=== PATIENT | male | born 1955 | race Two or more races ===

== ENCOUNTER 2022-08-04 09:08 | Outpatient (CLI) | payer OTHER | END 2022-08-04 23:59 | disposition home or self-care (01) | LOC: LAB 09:08 | PROVIDERS: ATTEND Specialist | DX: Z01.812 Encounter for preprocedural laboratory examination (principal); Z20.822 Contact with and (suspected) exposure to COVID-19 | CPT/HCPCS: U0003; C9803 ==

== ENCOUNTER 2022-08-12 05:18 | Inpatient (IN) | payer OTHER ==
[2022-08-12] VITALS (7 sets, daily range): BP systolic 120–158; BP diastolic 62–82
[~2022-08-12] VITALS: Ht 160 cm; Wt 102.1 kg
--- NOTE | 2022-08-12 05:30 | NUR ---
DAY SURGERY RECEIVED PATIENT IN DAY SURGERY , AMBULATORY,A/OX4, RESPIRATION EVEN AND UNLABORED , ACCOMPANIED BY FAMILY MEMBER, RIGHT HAND IV SITE G 20 STARTED , PT NPO , CHECK LIST DONE , ALL THE CONSENTS DONE, AWAITING TO BE TRANSFERRED TO OR .
[2022-08-12] MEDS ORDERED: BUPIVACAINE 0.5 % PF 150 MG/30 ML VIAL ONE ×2 (06:14→06:56)
[2022-08-12] MEDS ORDERED: POLYMYXIN B SULFATE 500,000 UNITS ONE (06:15)
--- NOTE | 2022-08-12 06:15 | NUR ---
DAY SURGERY PATIENT TO SURGERY HOLDING AREA AT THIS TIME.
[2022-08-12] MEDS ORDERED: HYDROMORPHONE INJ 2 MG/ML DISP.SYRIN ONE (06:56)
[2022-08-12] MEDS ORDERED: oxyCODONE IR immediate release 5 MG PO PRN (07:00)
[2022-08-12] MEDS ORDERED: TRANEXAMIC ACID 3,000 MG in SODIUM CHLORIDE IRRIG SOLUTION 70 ML IR ONE (07:00)
[2022-08-12] MEDS ORDERED: CLONIDINE HCL 0.1 MG TABLET PO PRN (07:00)
[2022-08-12] MEDS ORDERED: diphenhydrAMINE HCL 25 MG CAPSULE PO PRN (07:00)
[2022-08-12] MEDS ORDERED: MAG HYDROX/AL HYDROX/SIMETH 30 ML UDC PO PRN (07:00)
[2022-08-12] MEDS ORDERED: ONDANSETRON HCL/PF 4 MG/2 ML VIAL IV PRN (07:00)
[2022-08-12] MEDS ORDERED: MENTHOL/CETYLPYRD (CEPACOL) 1 LOZ LOZENGE PO PRN (07:00)
[2022-08-12] MEDS ORDERED: HYDROMORPHONE 1 MG/1 ML DISP.SYRIN IM/IV/SC PRN (07:00)
[2022-08-12] MEDS: IV LR 1000 ML 1,000 ML IV PRN ×2 (10:27→22:24)
--- NOTE | 2022-08-12 10:30 | NUR ---
RN ADMITTING NOTES ADMITTED THIS 66 Y/O MALE PATIENT FROM PACU @0950 AM. TRANSPORTED VIA GURNEY, ACCOMPANIED BY RN LU CAMPBELL. ADMITTING DIAGNOSIS: S/P LEFT TOTAL KNEE ARTHROPLASTY BY DR. CARTER. PATIENT IS AWAKE, ALERT AND ORIENTED X4, VERBALLY RESPONSIVE, NOT IN ANY ACUTE DISTRESS. PATIENT DENIES ANY PAIN AT THIS TIME. CURRENTLY ON O2 INHALATION @2LPM VIA N/C, SATURATING @ 93%. NO SOB NOTED, BREATHING EVEN AND UNLABORED. NOTED WITH PERIPHERAL LINE ON RIGHT HAND #20G, INTACT AND PATENT, FLUSHES WELL. NOTED WITH LEFT LEG DRESSING, C/D/I. NOTED WITH PETECHIAE ON BOTH UPPER EXTREMITIES, DENIED ANY PAIN OR ITCHING. ORIENTED PATIENT TO ROOM AND STAFF. VITAL SIGNS TAKEN, STABLE. POST-OP ORDERS NOTED AND CARRIED OUT. IV FLUID OF LR @100ML/HR STARTED. SAFETY MEASURE IN PLACE. BED IN LOWEST AND LOCKED POSITION, SIDE RAILS UP X2, CALL LIGHT PLACED WITHIN EASY REACH. WILL CONTINUE TO MONITOR PATIENT.
[2022-08-12] MEDS ORDERED: ATOR40TA PO (10:38)
[2022-08-12] MEDS ORDERED: FINA5TAB11 PO (10:38)
[2022-08-12] MEDS ORDERED: TAMS-12 PO (10:38)
[2022-08-12] MEDS ORDERED: METF750T46 PO (10:38)
[2022-08-12] MEDS ORDERED: AMLO2.5T4 PO (10:38)
[2022-08-12] MEDS ORDERED: POTA-58 PO (10:38)
[2022-08-12] MEDS ORDERED: BENA40TA8 PO (10:38)
[2022-08-12] MEDS ORDERED: FURO-144 PO (10:38)
[2022-08-12] MEDS: FAMOTIDINE (20 MG) 20 MG TABLET PO SCH ×2 (11:28→21:22)
[2022-08-12] MEDS: ANCEF 1 GM/50 ML D5W IV SCH ×4 (14:21→22:24)
[2022-08-12] MEDS: DOCUSATE SODIUM 100 MG CAPSULE PO SCH (17:06)
[2022-08-12] MEDS: AMLODIPINE BESYLATE 5 MG TABLET PO SCH (17:07)
--- NOTE | 2022-08-12 18:40 | NUR ---
RN CLOSING NOTES PATIENT IN BED AWAKE, A/O X4, NO SIGNS OF ACUTE DISTRESS NOTED. ON O2 @ 2LPM VIA N/C SATURATING WELL, NO SOB NOTED, BREATHING EVEN AND UNLABORED. DENIES ANY PAIN AT THIS TIME. S/P LEFT KNEE ARTHROPLASTY WITH DRESSING C/D/I. IV ACCESS ON RIGHT HAND #20G, INTACT AND PATENT WITH LR @100ML/HR INFUSING WELL. SAFETY MEASURE IN PLACE. BED IN LOWEST AND LOCKED POSITION. SIDE RAILS UP X2, CALL LIGHT PLACED WITHIN EASY REACH. WILL CONTINUE TO MONITOR PATIENT.
--- NOTE | 2022-08-12 18:55 | NUR ---
RN NOTE OXY IR 5 MG 1 TAB GIVEN PER ORAL FOR C/O LEFT KNEE PAIN.
--- NOTE | 2022-08-12 19:30 | NUR ---
MS RN OPENING NOTES RECEIVED PATIENT LYING IN BED AWAKE. A/O X4. BREATHING EVEN AND NON-LABORED. ON O2 AT 2LPM VIA NASAL CANULA. NOT IN APPARENT DISTRESS. VERBALIZED LEFT KNEE PAIN 4-5, PRN OXY 5MG ADMINISTERED AT 1855. HAS RIGHT HAND IV ACCESS #20G WITH LR RUNNING AT 100 ML/HR. NO S/S OF INFILTRATION NOTED. LEFT KNEE SURGICAL DRESSING C/D/I. SAFETY MEASURES IN PLACE: BED LOCKED AND IN LOWEST POSITION, SIDE RAILS UP X2, CALL LIGHT WITHIN REACH. WILL CONTINUE POC.
[2022-08-12] MEDS ORDERED: TAMSULOSIN 0.4 MG CAP.SR.24H PO SCH (22:00)
--- NOTE | 2022-08-13 00:43 | NUR ---
RT NOTE Pt rec'd on Room air. Pt awake and alert. Pt placed on CPAP NOC per MD orders. Pt shows no signs of resp distress. pt is comfortable and tolerates CPAP well. RN aware. CPAP plugged into red outlet. Ambu bag at bedside. Alarms are set and audible. Will continue to monitor closely. Addendum: 08/13/22 at 0045 by SOPHIA NG RT Amended: Links added.
[2022-08-13] MEDS: oxyCODONE IR immediate release 5 MG PO PRN ×3 (05:42→16:01)
--- NOTE | 2022-08-13 07:00 | NUR ---
MS RN CLOSING NOTES PATIENT LYING IN BED AWAKE, ABLE TO VERBALIZE NEEDS. A/O X4. NO SOB OR NOTED, TOLERATING ROOM AIR WELL. DENIES PAIN AT THIS TIME. AFEBRILE. HAS RIGHT HAND IV ACCESS #20G WITH LR RUNNING AT 100 ML/HR. INTACT, PATENT AND FLUSHING. LEFT KNEE SURGICAL DRESSING C/D/I. ALL DUE MEDS GIVEN AND NEEDS ATTENDED. SAFETY MEASURES MAINTAINED: BED LOCKED AND IN LOWEST POSITION, SIDE RAILS UP X2, CALL LIGHT WITHIN REACH. WILL ENDORSE FOR PUMA.
--- NOTE | 2022-08-13 07:10 | NUR ---
MS RN OPENING NOTES: RECEIVED PT IN BED AWAKE, ALERT AND ORIENTED X 4 AND ABLE TO VERBALIZED NEEDS. NO SOB OR CARDIAC DISTRESS NOTED. DENIES PAIN AT THIS TIME. S/P LTKA 08/12. IV ACCESS ON R HAND G20 ON LR 1L @100 ML/HR. SAFETY PRECAUTIONS MAINTAINED. SIDE RAILS UP X 2 CALL LIGHT IN EASY REACH FOR HELP. WILL MONITOR PT ACCORDINGLY.
[2022-08-13 07:25] LABS: HEMOGLOBIN 10.3 g/dL (13.5-17.5)
[2022-08-13 08:00] VITALS: BP 131/88
[2022-08-13] MEDS: AMLODIPINE BESYLATE 5 MG TABLET PO SCH ×2 (08:36→16:59)
[2022-08-13] MEDS: DOCUSATE SODIUM 100 MG CAPSULE PO SCH ×2 (08:36→16:59)
[2022-08-13] MEDS: FAMOTIDINE (20 MG) 20 MG TABLET PO SCH (08:36)
[2022-08-13] MEDS ORDERED: ASPIRIN 325 MG TABLET PO SCH (09:00)
[2022-08-13] MEDS: IV LR 1000 ML 1,000 ML IV PRN (10:25)
--- NOTE | 2022-08-13 16:05 | NUR ---
RN notes: pain mgt given prn oxycodone for L knee pain level 6-7/10 while covering for primary RN
[2022-08-13 16:16] VITALS: BP 131/69
[2022-08-13 16:59] VITALS: BP 131/69
--- NOTE | 2022-08-13 17:10 | NUR ---
RN NOTES: SEEN BY DR GARCIA, PER DR GARCIA HE'S OKAY TO GO HOME AND CONTINUE HOME PAIN MEDS.
--- NOTE | 2022-08-13 18:00 | NUR ---
RECEIVING INSPECTOR NOTES: PT DC HOME WITH JOSE AND SISTER. PT ALERT AND ORIENTED X 4 AND ABLE TO VERBALIZED NEEDS. NO SOB OR CARDIAC DISTRESS NOTED. PT HAD HIS DINNER. PT'S SKIN ISSUES TAKEN, PHOTO ATTACHED TO PT'S CHART. ALL BELONGINGS CARRIED WITH PT AND SIGNED. DISCHARGE INSTRUCTIONS GIVEN TO PT AND AND VERBALIZED UNDERSTANDING. PAIN MANAGEMENT TYLENOL WHICH OTC, ASPIRIN FOR 30 DAYS AND FOLLOW UP WITH ORTHO AFTER 1-2 WEEKS. IV ACCESS REMOVED, IDENTIFICATION BAND REMOVED. INCENTIVE SPIROMETER AND WHEEL CHAIR GIVEN TO PATIENT. PT WAS WHEELED OUTSIDE BY TOXICOLOGY SUPERVISOR. PT LEFT THE UNIT STABLE.
== END 2022-08-13 19:00 | disposition home or self-care (01) | DRG 470 ==
LOC: DS 05:18 → MED 10:11
PROVIDERS: ADMIT Nurse Practitioner Acute Care; ATTEND Nurse Practitioner Acute Care
PROC: 0SRD0J9 Replacement of Left Knee Joint with Synthetic Substitute, Cemented, Open Approach (ICD-10-PCS; principal; 2022-08-12)
DX: M17.12 Unilateral primary osteoarthritis, left knee (principal); D68.59 Other primary thrombophilia; N40.0 Benign prostatic hyperplasia without lower urinary tract symptoms; I10 Essential (primary) hypertension; E11.9 Type 2 diabetes mellitus without complications; E66.01 Morbid (severe) obesity due to excess calories; G89.29 Other chronic pain; Z79.82 Long term (current) use of aspirin; Z74.09 Other reduced mobility; Z79.84 Long term (current) use of oral hypoglycemic drugs; E78.00 Pure hypercholesterolemia, unspecified; Z68.39 Body mass index [BMI] 39.0-39.9, adult
CPT/HCPCS: 36415; 73020; 77002; 82962-TC; 84132-TC; 85027-TC; 87081-TC; 94799-TC; 97110-TC; 97116-TC; 97530-TC; A4217; C1713; C1776; G0378; J0690; J1100; J1170; J1885; J2405; J2704; J2765; J3490; J7030; J7060; J7120

== ENCOUNTER → 2022-08-25 | Emergency (ER) | payer OTHER ==
[~2022-08-25] VITALS: Ht 160 cm; Wt 86.2 kg
[~2022-08-25] MED LIST: AMLO2.5T4 PO; ATOR40TA PO; BENA40TA8 PO; FINA5TAB11 PO; FURO-144 PO; HYDROCODONE/APAP 10/325MG TABLET ONE; HYDROCODONE/APAP 10/325MG TABLET PO ONE; METF750T46 PO; POTA-58 PO; TAMS-12 PO
--- NOTE | 2022-08-25 12:45 | NUR ---
ENT HERE BY DR CARTER DUE TO LEFT LEG EDEMA,S/P LEFT KNEE SX 10 DAYS AGO. PT A&OX4, WEARING COMPRESSION SOCKS, ABLE TO AMBULATE W/ MINIMAL ASSISTANCE.
[2022-08-25 16:36] VITALS: BP 137/72
== END | disposition home or self-care (01) ==
LOC: ER 12:13
DX: R60.0 Localized edema (principal); I10 Essential (primary) hypertension; E11.9 Type 2 diabetes mellitus without complications; Z96.652 Presence of left artificial knee joint; Z79.899 Other long term (current) drug therapy
CPT/HCPCS: 93971-TC